=== PATIENT | male | born 1985 | race Caucasian/White ===

== ENCOUNTER 2021-10-10 05:20 | Emergency (ER) | payer BC, OTHER ==
[2021-10-10 06:46] LABS: Absolute Lymphocytes (CBC) 1.5 K/uL (0.7-4.9); Hematocrit 50.4 % (39.6-49.0); Lymphocytes % 26.1 % (15.3-44.8); MPV 7.7 fL (7.6-11.3); RBC Red Blood Cell Count 5.25 M/uL (4.33-5.43)
[2021-10-10 07:05] LABS: Bilirubin Direct 0.3 mg/dL (0-0.2); Bilirubin Total 1.2 mg/dL (0.2-1.0); Magnesium 2.4 mg/dL (1.8-2.4); Potassium 4.1 mmol/L (3.5-5.1); Protein, Total 7.7 g/dL (6.4-8.2); Troponin High Sensitivity 22.6 pg/mL (<58.9)
--- NOTE | 2021-10-10 07:36 | RAD REPORT ---
EXAM DESCRIPTION: RAD - Chest Single View - 10/10/2021 7:06 am CLINICAL HISTORY: CHEST PAIN COMPARISON: No comparisons FINDINGS: Lines: None. Lungs: No evidence of edema or pneumonia. Pleural: No significant pleural effusions or pneumothorax. Cardiac: The heart size is within normal limits. Bones: No acute fractures. Other: IMPRESSION: No acute cardiopulmonary disease.
--- NOTE | 2021-10-10 07:49 | EDPHYS ---
Physician Documentation [facility] Name: Ismael Huff Age: 36 yrs Sex: Male : 1985 Arrival Date: 10/10/2021 Time: 05:24 Bed 24 Private MD: ED Physician Nestor Chen HPI: 10/10 07:43 This 36 yrs old Male presents to ER via Ambulatory with complaints of Shoulder Pain. jr8 07:43 Modifying factors: the symptoms are alleviated by nothing. The symptoms are aggravated jr8 by Supine position . Severity of symptoms: At their worst the symptoms were moderate, in the emergency department the symptoms have resolved. The patient has not experienced similar symptoms in the past. The patient has not recently seen a physician. This is a 36-year-old male patient that presented emergency room with complaints of left shoulder pain and palpitations to the chest. Patient stated that he had vomited on Saturday from probably bad food. Stated that during that time he felt racing heartbeat. Now having excruciating intermittent left shoulder pain worse with laying down. Denies any trauma to the shoulder.. Historical: - Allergies: 05:32 Dilantin; ll3 05:32 Tegretol; ll3 - Home Meds: 05:32 Adderall XR Oral [Active]; ll3 - PMHx: 05:32 Seizure; ADHD; ll3 - PSHx: 05:32 None; ll3 - Immunization history:: Client reports receiving the 2nd dose of the Covid vaccine. - Social history:: Smoking status: Patient denies any tobacco usage or history of. ROS: 07:43 Eyes: Negative for injury, pain, redness, and discharge, ENT: Negative for injury, jr8 pain, and discharge, Neck: Negative for injury, pain, and swelling, Respiratory: Negative for shortness of breath, cough, wheezing, and pleuritic chest pain, Abdomen/GI: Negative for abdominal pain, nausea, vomiting, diarrhea, and constipation, Back: Negative for injury and pain, Skin: Negative for injury, rash, and discoloration, Neuro: Negative for headache, weakness, numbness, tingling, and seizure. 07:43 Cardiovascular: Positive for palpitations. 07:43 MS/extremity: Positive for pain, of the Left shoulder. Exam: 07:43 Constitutional: This is a well developed, well nourished patient who is awake, alert, jr8 and in no acute distress. Neck: Trachea midline, no thyromegaly or masses palpated, and no cervical lymphadenopathy. Supple, full range of motion without nuchal rigidity, or vertebral point tenderness. No Meningismus. Chest/axilla: Normal chest wall appearance and motion. Nontender with no deformity. No lesions are appreciated. Cardiovascular: Regular rate and rhythm with a normal S1 and S2. No gallops, murmurs, or rubs. Normal PMI, no JVD. No pulse deficits. Respiratory: Lungs have equal breath sounds bilaterally, clear to auscultation and percussion. No rales, rhonchi or wheezes noted. No increased work of breathing, no retractions or nasal flaring. Abdomen/GI: Soft, non-tender, with normal bowel sounds. No distension or tympany. No guarding or rebound. No evidence of tenderness throughout. Back: No spinal tenderness. No costovertebral tenderness. Full range of motion. Skin: Warm, dry with normal turgor. Normal color with no rashes, no lesions, and no evidence of cellulitis. MS/ Extremity: Pulses equal, no cyanosis. Neurovascular intact. Full, normal range of motion. Neuro: Awake and alert, GCS 15, oriented to person, place, time, and situation. Cranial nerves II-XII grossly intact. Motor strength 5/5 in all extremities. Sensory grossly intact. Cerebellar exam normal. Normal gait. Vital Signs: 05:28 BP 145 / 102; Pulse 97; Resp 15; Temp 97.7(TE); Pulse Ox 100% on R/A; Weight 97.52 kg ll3 (R); Height 5 ft. 9 in. (175.26 cm) (R); Pain 3/10; 06:51 BP 136 / 95; Pulse 85; Resp 18; Pulse Ox 95% on R/A; sf1 05:28 Body Mass Index 31.75 (97.52 kg, 175.26 cm) ll3 MDM: 06:28 Patient medically screened. jr8 07:37 Data reviewed: vital signs, nurses notes, lab test result(s), EKG, radiologic studies, jr8 plain films. Data interpreted: Pulse oximetry: on room air is 95 %. Interpretation: normal. Counseling: I had a detailed discussion with the patient and/or guardian regarding: the historical points, exam findings, and any diagnostic results supporting the discharge/admit diagnosis, lab results, radiology results, the need for outpatient follow up, a family practitioner, to return to the emergency department if symptoms worsen or persist or if there are any questions or concerns that arise at home. 07:43 ED course: Patient had no acute EKG, chest x-ray, blood work findings. Physical exam jr8 unremarkable. Patient hemodynamically stable at this time. Patient currently without pain at this time. Unlikely that it is cardiac at this time. Patient is to follow-up with his primary physician for further evaluation of the intermittent shoulder pain. Not clearly identified as musculoskeletal pain as well based on physical exam. Close return precautions given to patient. Patient good with this at this time. 10/10 06:28 Order name: Basic Metabolic Panel; Complete Time: 07:24 10/10 06:28 Order name: CBC with Diff; Complete Time: 07:24 10/10 06:28 Order name: LFT's; Complete Time: 07:24 10/10 06:28 Order name: Magnesium; Complete Time: 07:24 10/10 06:28 Order name: NT PRO-BNP; Complete Time: 07:24 10/10 06:28 Order name: PT-INR; Complete Time: 07:24 10/10 06:28 Order name: Troponin HS; Complete Time: 07:24 10/10 06:28 Order name: XRAY Chest (1 view); Complete Time: 07:37 10/10 06:28 Order name: EKG; Complete Time: 06:29 10/10 06:28 Order name: Cardiac monitoring; Complete Time: 06:50 10/10 06:28 Order name: EKG - Nurse/Tech; Complete Time: 06:50 10/10 06:28 Order name: IV Saline Lock; Complete Time: 06:35 10/10 06:28 Order name: Labs collected and sent; Complete Time: 06:50 10/10 06:28 Order name: O2 Per Protocol; Complete Time: 06:50 10/10 06:28 Order name: O2 Sat Monitoring; Complete Time: 06:50 Administered Medications: No medications were administered Disposition Summary: 10/10/21 07:48 Discharge Ordered Location: Home jr8 Problem: new jr8 Symptoms: have improved jr8 Condition: Stable jr8 Diagnosis - Pain in left shoulder jr8 Followup: jr8 - With: Private Physician - When: 2 - 3 days - Reason: Recheck today's complaints, Continuance of care, Re-evaluation by your physician Discharge Instructions: - Discharge Summary Sheet jr8 - Shoulder Pain jr8 Forms: - Medication Reconciliation Form jr8 - Thank You Letter jr8 - Antibiotic Education jr8 - Prescription Opioid Use jr8 Signatures: Dispatcher [employer] EDMS Marco Quiroga PA PA jr8 Kurt Galan RN RN ll3
--- NOTE | 2021-10-10 07:49 | ER ---
Nurse's Notes [facility] Name: Ismael Huff Age: 36 yrs Sex: Male : 1985 Arrival Date: 10/10/2021 Time: 05:24 Bed 24 Private MD: Diagnosis: Pain in left shoulder Presentation: 10/10 05:28 Chief complaint: Patient states: C/O left sholder pain since Saturday night, states ll3 vommited Saturday night twice. Coronavirus screen: At this time, the client does not indicate any symptoms associated with coronavirus-19. Ebola Screen: No symptoms or risks identified at this time. Initial Sepsis Screen: Does the patient meet any 2 criteria? No. Patient's initial sepsis screen is negative. Does the patient have a suspected source of infection? No. Patient's initial sepsis screen is negative. Risk Assessment: Do you want to hurt yourself or someone else? Patient reports no desire to harm self or others. Onset of symptoms was October 07, 2021. 05:28 Method Of Arrival: Ambulatory 3 05:28 Acuity: SEBASTIAN 3 ll3 Triage Assessment: 05:32 General: Appears in no apparent distress. uncomfortable, Behavior is calm, cooperative. ll3 Pain: Complains of pain in anterior aspect of left shoulder Pain radiates to left side of neck Pain currently is 3 out of 10 on a pain scale. Pain began Pain started Saturday night. Musculoskeletal: Parent/caregiver report the patient having pain in anterior aspect of left shoulder. Historical: - Allergies: 05:32 Dilantin; ll3 05:32 Tegretol; ll3 - Home Meds: 05:32 Adderall XR Oral [Active]; ll3 - PMHx: 05:32 Seizure; ADHD; ll3 - PSHx: 05:32 None; ll3 - Immunization history:: Client reports receiving the 2nd dose of the Covid vaccine. - Social history:: Smoking status: Patient denies any tobacco usage or history of. Screenin:52 Abuse screen: Denies threats or abuse. Nutritional screening: No deficits noted. sf1 Tuberculosis screening: No symptoms or risk factors identified. Fall Risk None identified. Assessment: 06:14 General: Appears in no apparent distress. Behavior is calm, cooperative, appropriate kd3 for age. Neuro: Level of Consciousness is awake, alert, obeys commands, Oriented to person, place, time, situation, Appropriate for age. Cardiovascular: Patient's skin is warm and dry. Respiratory: Airway is patent Respiratory effort is even, unlabored, labored. Vital Signs: 05:28 BP 145 / 102; Pulse 97; Resp 15; Temp 97.7(TE); Pulse Ox 100% on R/A; Weight 97.52 kg ll3 (R); Height 5 ft. 9 in. (175.26 cm) (R); Pain 3/10; 06:51 BP 136 / 95; Pulse 85; Resp 18; Pulse Ox 95% on R/A; sf1 05:28 Body Mass Index 31.75 (97.52 kg, 175.26 cm) ll3 ED Course: 05:24 Patient arrived in ED. es 05:32 Triage completed. ll3 05:32 Arm band placed on. ll3 05:39 Tomeka Novak RN is Primary Nurse. sf1 06:28 Marco Quiroga PA is PHCP. jr8 06:28 Nestor Chen MD is Attending Physician. jr8 06:36 Basic Metabolic Panel Sent. sf1 06:36 CBC with Diff Sent. sf1 06:36 LFT's Sent. sf1 06:36 Magnesium Sent. sf1 06:36 NT PRO-BNP Sent. sf1 06:36 PT-INR Sent. sf1 06:36 Troponin HS Sent. sf1 06:52 Bed in low position. Call light in reach. sf1 06:52 Inserted saline lock: 20 gauge in right antecubital area, using aseptic technique. sf1 07:06 XRAY Chest (1 view) In Process Unspecified. EDMS 08:05 No provider procedures requiring assistance completed. IV discontinued, intact, jl7 bleeding controlled, No redness/swelling at site. Pressure dressing applied. Administered Medications: No medications were administered Outcome: 07:48 Discharge ordered by . jr8 08:05 Discharged to home ambulatory. jl7 08:05 Condition: stable 08:05 Discharge instructions given to patient, Instructed on discharge instructions, follow up and referral plans. Demonstrated understanding of instructions, follow-up care. 08:10 Patient left the ED. jl7 Signatures: Dispatcher [employer] EDNE Latasha Irizarry Marco Quiroga PA PA jr8 Kali Mazariegos RN RN jl7 Kurt Galan RN RN ll3 Katelynn Mo RN RN kd3 Tomeka Novak RN RN sf1 Corrections: (The following items were deleted from the chart) 08:35 08:35 Patient left the ED. shamika jl7
[2021-10-10 08:41] VITALS: TEMP 97.7
[2021-10-10 08:42] VITALS: BP 136/95; O2SAT 95
--- NOTE | 2021-10-11 07:27 | EKG ---
Test Date: 2021-10-10 Test Time: 06:42:47 Water Filter Cleaner: MEASUREMENT RESULTS: Intervals: Rate: 83 [place]: 132 QRSD: 96 QT: 374 QTc: 439 [place]: P: 57 [place]: 132 QRS: 47 T: 31 INTERPRETIVE STATEMENTS: Normal sinus rhythm Normal ECG No previous ECG available for comparison Electronically Signed On 10-11-21 07:26:07 PAPER BAG MAKER by Ricki Kwong
== END 2021-10-10 08:35 | disposition home or self-care (01) ==
LOC: ER 05:20
DX: M25.512 Pain in left shoulder (principal); F90.9 Attention-deficit hyperactivity disorder, unspecified type; Z88.8 Allergy status to other drugs, medicaments and biological substances
CPT/HCPCS: 36415; 71045; 80048; 80076; 83735; 83880; 84484; 85025; 85610; 93005; 99283